=== PATIENT | female | born 1950 | race Caucasian/White ===

== ENCOUNTER 2019-10-25 14:57 | Outpatient (RCR) | payer MEDICARE ==
[2019-12-09] MEDS ORDERED: DOXYCYCLINE 10100 MG PO (20:38)
== END 2020-01-23 | disposition home or self-care (01) ==
LOC: WSST
DX: J38.5 Laryngeal spasm (principal)

== ENCOUNTER 2019-12-09 20:09 | Emergency (ER) | payer MEDICARE ==
[~2019-12-09] VITALS: Ht 162.6 cm; Wt 79.5 kg
[2019-12-09] MEDS ORDERED: DOXYCYCLINE 10100 MG PO (20:38)
[2019-12-09 20:39] VITALS: BP 166/79; PULSE 84; TEMP 98.8
== END 2019-12-09 21:00 | disposition home or self-care (01) ==
LOC: COL.ER 20:09
DX: S61.452A Open bite of left hand, initial encounter (principal); W55.01XA Bitten by cat, initial encounter

== ENCOUNTER → 2020-01-21 | Outpatient (CLI) | payer MEDICARE ==
[~2020-01-21] MED LIST: DOXYCYCLINE 10100 MG PO
== END ==
LOC: MC.RAD 13:15
DX: Z12.31 Encounter for screening mammogram for malignant neoplasm of breast (principal); Z78.0 Asymptomatic menopausal state